=== PATIENT | female | born 1975 | race Caucasian/White ===

== ENCOUNTER → 2018-08-03 | Outpatient (CLI) | payer BC ==
[~2018-08-03] MED LIST: CYCL10 PO; DIAZ5 PO; GABA300; HYDACE5 PO; LETR2.5; LEVFLO500 PO; NAPR500 PO; OXYACE5T PO; Omeprazole20 M1 PO; PHENA200 PO; PRED10 PO; PROM25 PO; RXCYCL10 PO; RXPHEN200 PO
[2018-08-07 15:07] LABS: HPV 16 Negative (Negative); HPV 18 Negative (Negative); HPV OTHER HR TYPES Negative (Negative)
== END | disposition home or self-care (01) ==
LOC: LAB SHORT 11:57 → LAB 11:57
PROVIDERS: Obstetrics & Gynecology
DX: Z01.419 Encounter for gynecological examination (general) (routine) without abnormal findings (principal)
CPT/HCPCS: 87624; G0123

== ENCOUNTER → 2023-08-29 | Outpatient (CLI) | payer BC ==
[2023-08-31 15:11] LABS: HPV 16 Negative (Negative); HPV 18 Negative (Negative); HPV OTHER HR TYPES Negative (Negative)
== END ==
LOC: LAB SHORT 18:00 → LAB 18:00
PROVIDERS: Family Medicine
DX: Z12.4 Encounter for screening for malignant neoplasm of cervix (principal)
CPT/HCPCS: 87624; G0145